=== PATIENT | female | born 1950 | race Caucasian/White ===

== ENCOUNTER 2021-03-13 12:14 | Emergency (ER) | payer MEDICARE, SELFPAY ==
[2021-03-13 12:26] VITALS: BP 137/60; PULSE 75; RESP 18; TEMP 37; O2SAT 98
--- NOTE | 2021-03-13 12:33 | ED.SKABFB ---
HPI - Skin/Abscess/Foreign Bdy General Stated complaint: spot on right leg Time Seen by Provider: 03/13/21 12:33 History of Present Illness HPI narrative: Patient presents with an insect bite to her right lower leg that has had increased redness and warmth and tenderness to her right lower extremity. No drainage no streaking. Patient states she has been applying Neosporin but has noticed increased in redness and not improving. MD complaint: insect bite/sting Tetanus up to date: yes Location: [facility] Related Data Home Medications Medication Instructions Recorded Confirmed atorvastatin 03/13/21 cilostazol mg 03/13/21 clopidogrel 03/13/21 furosemide 03/13/21 gabapentin 03/13/21 losartan 03/13/21 Allergies Allergy/AdvReac Type Severity Reaction Status Date / Time succinylcholine Allergy Unknown Stopped Verified 03/13/21 12:37 Breathing Review of Systems Review of Systems: Narrative: CONSTITUTIONAL: Denies fever, chills, or sweats. EYES: Denies visual changes, redness, or discharge. ENT: Denies rhinorrhea, congestion, sore throat, or otalgia. CARDIOVASCULAR: Denies chest pain, palpitations, or edema. RESPIRATORY: Denies cough or dyspnea. GASTROINTESTINAL: Denies abdominal pain, nausea, vomiting, or diarrhea. GENITOURINARY: Denies dysuria or hematuria. SKIN: Denies rash or itching. MUSCULOSKELETAL: Denies back pain, joint pain, or myalgia. NEUROLOGIC: Denies headache, numbness, or weakness. PSYCHIATRIC: Denies anxiety or depression. PMFSH Comments At time of signature, agree with nursing past medical, surgical, social and family history. There is no relevant family history pertinent to the presenting complaint Exam Narrative: Exam Narrative: GENERAL: Well-appearing, well-nourished, and in no acute distress. HEAD: Normocephalic, atraumatic. EYES: PERRLA and EOMI. ENT: Nares clear, no rhinorrhea or epistaxis. Mucous membranes moist. NECK: Supple. CHEST: Clear to auscultation. No respiratory distress. HEART: Regular rate and rhythm. No murmur heard. Normal peripheral pulses. ABDOMEN: Soft, nontender, nondistended, normal active bowel sounds. EXTREMITIES: Normal range of motion. No edema. Right lower extremity 5 cm x 7 cm area of redness and warmth no streaking no drainage consistent with cellulitis SKIN: Warm, dry, no rash. NEURO: No focal deficits. Alert and oriented x3. [place] Coma Scale Eye Opening: Spontaneous 4 [place] Coma Scale Motor: Obeys Commands 6 [place] Coma Scale Verbal: Oriented 5 [place] Coma Scale Total 15 Course Vital Signs Vital signs: Vital Signs Temperature 37.0 C 03/13/21 12:26 Pulse Rate 75 03/13/21 12:26 Respiratory Rate 18 03/13/21 12:26 Blood Pressure 137/60 03/13/21 12:26 Pulse Oximetry 98 03/13/21 12:26 Temperature 37.0 C 03/13/21 12:26 Pulse Rate 75 03/13/21 12:26 Respiratory Rate 18 03/13/21 12:26 Blood Pressure 137/60 03/13/21 12:26 Pulse Oximetry 98 03/13/21 12:26 Please JAYANT schedule a followup visit with your personal physician for further evaluation and treatment. Including recheck and discussion of your blood pressure. If your symptoms persist, change or worsen significantly before you can contact your personal physician then please, without delay, go to the emergency department for further evaluation MDM - Skin/Abscess/Foreign Bdy Differential Diagnosis Differential diagnosis: Likely abscess of skin or subcutaneous tissue, viral exanthem, dermatophytosis, urticaria, herpes zoster, allergic reaction to drug, cellulitis, eczema, insect bites, impetigo, contact dermatitis and other Critical Care Time Critical Care Time Critical Care Time: No Discharge Plan Discharge Clinical Impression: Cellulitis Patient Disposition: Home, Self-Care Condition: Stable Instructions: Antibiotic Form Additional Instructions: Keep the area clean and dry Antibiotic ointment to the area 3-4 times a day watch for infection--re
== END 2021-03-13 12:50 | disposition home or self-care (01) ==
PROVIDERS: Emergency Provider Nurse Practitioner Family; PCP Family Medicine
DX: L03.115 Cellulitis of right lower limb (principal); E78.00 Pure hypercholesterolemia, unspecified; I10 Essential (primary) hypertension; Z95.820 Peripheral vascular angioplasty status with implants and grafts
CPT/HCPCS: 99213; G0463

== ENCOUNTER 2021-06-19 15:07 | Emergency (ER) | payer MEDICARE, SELFPAY ==
[2021-06-19 15:15] VITALS: BP 154/79; PULSE 74; RESP 20; TEMP 36.6; O2SAT 99
--- NOTE | 2021-06-19 15:25 | ED.URI ---
HPI - URI/Sore Throat General Chief Complaint: Upper Respiratory Infection Stated Complaint: cold Source: patient and RN notes reviewed Mode of arrival: ambulatory Limitations: no limitations History of Present Illness HPI Narrative: Yazmin is a 70-year-old female patient ambulated into the [facility]. Patient states she has a 2-week history of cough, sinus congestion, postnasal drainage, ear pain, and not feeling well. Patient stated multiple family members have been sick throughout the last couple weeks with cold-like symptoms. Patient is frequent with her young grandchild who is 4. Patient states she has a long history of smoking has taken an albuterol inhaler and prednisone years ago. Patient states she has also used an [id number] cold medicine. Patient states her cough is worse at night. Patient has recently lost her . Related Data Home Medications Medication Instructions Recorded Confirmed atorvastatin 40 mg PO DAILY 03/13/21 06/19/21 cilostazol 100 mg PO BID 03/13/21 06/19/21 clopidogrel 75 mg PO DAILY 03/13/21 06/19/21 furosemide 20 mg PO DAILY 03/13/21 06/19/21 gabapentin 300 mg PO TID 03/13/21 06/19/21 losartan 100 mg PO DAILY 03/13/21 06/19/21 aspirin 81 mg PO DAILY 06/19/21 06/19/21 Allergies Allergy/AdvReac Type Severity Reaction Status Date / Time succinylcholine Allergy Unknown Stopped Verified 06/19/21 15:27 Breathing Review of Systems Review of Systems: CONSTITUTIONAL: Denies body aches, fever, chills, or sweats. EYES: Denies visual changes, redness, or discharge. ENT: + rhinorrhea,+ congestion, +sore throat, + otalgia. CARDIOVASCULAR: Denies chest pain, palpitations, or edema. RESPIRATORY: + cough + dyspnea. GASTROINTESTINAL: Denies abdominal pain, nausea, vomiting, or diarrhea. GENITOURINARY: Denies dysuria or hematuria. SKIN: Denies rash, itching, or wounds. MUSCULOSKELETAL: Denies back pain, joint pain, or myalgia. NEUROLOGIC: Denies headache, numbness, tingling, or weakness. PSYCH: Denies depression or anxiety. All systems reviewed & are unremarkable except as noted in HPI and below PMFSH Comments At time of signature, I have reviewed and agree with nursing past medical, surgical, social and family history unless otherwise noted. Please see nursing chart for further information. There is no relevant family history pertinent to the presenting complaint Exam Narrative: GENERAL: Well-appearing, well-nourished, and in no acute distress. HEAD: Normocephalic, atraumatic. EYES: EOMI. No redness or drainage. Conjunctivae normal. ENT: Mucous membranes pink and moist. Nasal passages erythematous with clear drainage, Bilateral TM opaque, moderate fluid noted in left ear. Posterior pharynx erythematous, mild edema, no exudate with moderate amount of post nasal drainage. Uvula midline. NECK: Normal AROM. Supple. Anterior cervical lymphadenopathy. CHEST: No respiratory distress.Inspiratory/Expiratory wheezing in bilateral upper lobes, decreased in bases. MUSCULOSKELETAL: No bony tenderness. EXTREMITIES: Normal range of motion. No edema. SKIN: Warm, dry, no rash. Capillary refill normal. Normal skin turgor. NEURO: No focal deficits. Alert and oriented x3. Gait steady. PSYCH: Normal affect. No signs of depression or anxiety. Course Vital Signs Vital signs: Vital Signs Temperature 36.6 C 06/19/21 15:15 Pulse Rate 74 06/19/21 15:15 Respiratory Rate 20 06/19/21 15:15 Blood Pressure 154/79 H 06/19/21 15:15 Pulse Oximetry 99 06/19/21 15:15 Temperature 36.6 C 06/19/21 15:15 Pulse Rate 74 06/19/21 15:15 Respiratory Rate 20 06/19/21 15:15 Blood Pressure 154/79 H 06/19/21 15:15 Pulse Oximetry 99 06/19/21 15:15 Reviewed. Pt has been instructed to follow up with her PCP regarding her elevated blood pressure today. MDM - URI/Sore Throat MDM Narrative Medical decision making narrative: Patient has been sick for last 2 weeks. Patient has inspi
--- NOTE | 2021-06-19 16:21 | PC.NURSE ---
1550 noted pt previously stated did not want covid testing.
== END 2021-06-19 15:50 | disposition home or self-care (01) ==
PROVIDERS: Emergency Provider Nurse Practitioner Family; PCP Family Medicine
DX: J40 Bronchitis, not specified as acute or chronic (principal); E78.00 Pure hypercholesterolemia, unspecified; I10 Essential (primary) hypertension
CPT/HCPCS: 99213; G0463

== ENCOUNTER 2022-01-13 09:10 | Emergency (ER) | payer MEDICARE, SELFPAY ==
[2022-01-13 09:15] VITALS: BP 164/71; PULSE 69; RESP 16; TEMP 36.8; O2SAT 97
--- NOTE | 2022-01-13 09:28 | ED.WOUNDLAC ---
HPI - Wound/Laceration General Chief Complaint: Wound/Laceration Stated Complaint: left leg injury Time Seen by Provider: 01/13/22 09:28 Source: patient, RN notes reviewed and old records reviewed Mode of arrival: ambulatory Limitations: no limitations History of Present Illness HPI narrative: 71-year-old female presents to [facility] with complaints of hitting her left lower leg on a metal pipe yesterday causing a small avulsion of the skin to her anterior left lower leg. No acute bleeding or any drainage noted.Patient reports that she did cleanse wound at home and also wound care given in clinic with Primaderm and saline solution.Patient reports that she will need update on her Tetanus. Onset (ago): day(s) (1) Patient tetanus UTD: No Related Data Home Medications Medication Instructions Recorded Confirmed atorvastatin 40 mg tablet 40 mg PO DAILY 03/13/21 06/19/21 cilostazol 100 mg tablet 100 mg PO BID 03/13/21 06/19/21 clopidogrel 75 mg tablet 75 mg PO DAILY 03/13/21 06/19/21 furosemide 20 mg tablet 20 mg PO DAILY 03/13/21 06/19/21 gabapentin 300 mg capsule 300 mg PO TID 03/13/21 06/19/21 losartan 100 mg tablet 100 mg PO DAILY 03/13/21 06/19/21 aspirin 81 mg capsule 81 mg PO DAILY 06/19/21 06/19/21 Allergies Allergy/AdvReac Type Severity Reaction Status Date / Time succinylcholine Allergy Unknown Stopped Verified 06/19/21 15:27 Breathing Review of Systems Review of Systems: CONSTITUTIONAL: Denies fever, chills, or sweats. EYES: Denies visual changes, redness, or discharge. ENT: Denies rhinorrhea, congestion, sore throat, or otalgia. CARDIOVASCULAR: Denies chest pain, palpitations, or edema. RESPIRATORY: Denies cough or dyspnea. GASTROINTESTINAL: Denies abdominal pain, nausea, vomiting, or diarrhea. GENITOURINARY: Denies dysuria or hematuria. SKIN: Denies rash or itching.0.5cm avulsion of skin to left anterior lower leg minimally subcutaneous MUSCULOSKELETAL: Denies back pain, joint pain, or myalgia. NEUROLOGIC: Denies headache, numbness, or weakness. PSYCHIATRIC: Denies anxiety or depression. [facility] Comments At time of signature, agree with nursing past medical, surgical, social and family history. There is no relevant family history pertinent to the presenting complaint Exam Narrative: GENERAL: Well-appearing, well-nourished, and in no acute distress. HEAD: Normocephalic, atraumatic. EYES: PERRLA and EOMI. ENT: Nares clear, no rhinorrhea or epistaxis. Mucous membranes moist.TM's normal with good light reflex, throat pink with no lesion or exudates or tonsil swelling NECK: Supple.no lymphadenopathy CHEST: Clear to auscultation. No respiratory distress.SAO2 97% on room air HEART: Regular rate and rhythm. No murmur heard. Normal peripheral pulses. ABDOMEN: Soft, nontender, nondistended, normal active bowel sounds. EXTREMITIES: Normal range of motion. trace pedal edema. SKIN: Warm, dry, no rash.0.5 cm avulsion type of laceration of skin to anterior left lower leg no debris noted, no acute drainage NEURO: No focal deficits. Alert and oriented x3. Course Course Level of Care: Express Care Visit Vital Signs Vital signs: Vital Signs Temperature 36.8 C 01/13/22 09:15 Pulse Rate 69 01/13/22 09:15 Respiratory Rate 16 01/13/22 09:15 Blood Pressure 164/71 H 01/13/22 09:15 Pulse Oximetry 97 01/13/22 09:15 Oxygen Delivery Room Air 01/13/22 09:15 Temperature 36.8 C 01/13/22 09:15 Pulse Rate 69 01/13/22 09:15 Respiratory Rate 16 01/13/22 09:15 Blood Pressure 164/71 H 01/13/22 09:15 Pulse Oximetry 97 01/13/22 09:15 Oxygen Delivery Room Air 01/13/22 09:15 MDM - Wound/Laceration MDM Narrative Medical decision making narrative: Patient received Tetanus update while in clinic Differential Diagnosis Differential diagnosis: Likely laceration, avulsion of skin and other (wound assessment, update of tetanus) Critical Care Time Critical Care Time Critical Care Time: No Dis
[2022-01-13] MEDS: TETANUS,DIPHTHERIA,AC PERTUSSIS ADULT (0.5 ML) BOOSTRIX IM (10:00)
== END 2022-01-13 10:24 | disposition home or self-care (01) ==
PROVIDERS: Emergency Provider Registered Nurse; PCP Family Medicine
DX: S81.802A Unspecified open wound, left lower leg, initial encounter (principal); W22.8XXA Striking against or struck by other objects, initial encounter; Z23 Encounter for immunization; E78.00 Pure hypercholesterolemia, unspecified; I10 Essential (primary) hypertension; Z95.820 Peripheral vascular angioplasty status with implants and grafts
CPT/HCPCS: 90471; 90715; 99213; G0463

== ENCOUNTER 2024-09-25 08:27 | Emergency (ER) | payer MEDICARE, SELFPAY ==
--- NOTE | ~2024-09-25 | XR_ITS ---
EXAMINATION: XR chest 2V DATE: 09/25/2024 09:19 INDICATION: Cough and fever. TECHNIQUE: Frontal and lateral views of the chest were obtained. COMPARISON: None. FINDINGS: Calcified pulmonary nodules and calcified hilar and mediastinal lymph nodes are consistent with old granulomatous disease. There is mild atelectasis at the lung bases. No pleural effusion or p neumothorax. The heart size is normal. IMPRESSION: 1. Mild atelectasis at the lung bases. Reviewed, dictated and finalized at location [facility]
--- OUTSIDE RECORDS SUMMARY | 2024-09-25 08:29 | XMS_ITS | Clinical Summary ---
Author Organization [email or web address] Address [address] [place] [address] Care Team Providers Care Yellow Pages Space Salesperson Name Role Phone Alvaro Santos MD Primary Care Provider [phone] Source Comments [email or web address],non-owned Affiliates and Associated Physician Practices is amultiple site organization consisting of ambulatory clinics and hospital sitesin [place], [place], [place] and [place]. This disclosure is being madepursuant to the Care Everywhere program and may not contain all information available regarding this patient. Last updated 18.[email or web address] Allergies Active Allergy Reactions Criticality Noted Date Comments Succinylcholine Anaphylaxis High Medications * Be aware that medications may not be up to date on this document. Alwaysverify current medications with the patient. Medication Sig Dispensed Refills Start Date End Date Status atorvastatin (LIPITOR) 40 MG tablet Take 40 mg by mouth Active clopidogrel (PLAVIX) 75 MG tablet Take 75 mg by mouth 03/17/2017 Active furosemide (LASIX) 20 MG tablet 05/21/2018 Active losartan (COZAAR) 100 MG tablet 05/08/2018 Active Multiple Vitamins-Minerals (ICAPS AREDS 2 PO) Active naproxen (NAPROSYN) 500 MG tablet 04/09/2018 Active Family History Medical History Relation Name Comments Hypertension Father Renal Disease Father Hypertension Mother Relation Name Status Comments Father Mother Social History Tobacco Use Types Packs/Day Years Used Date Smoking Tobacco: Former Cigarettes Smokeless Tobacco: Never Tobacco Cessation:Counseling Given: No Comments:qiut 3 years ago in Sep Alcohol Use Standard Drinks/Week Comments No 0 (1 standard drink = 0.6 oz pur e alcohol) Sex and Gender Information Value Date Recorded Sex Assigned at Not on file Gender Identity Not on file Sexual Orientation Not on file Last Filed Vital Signs Vital Sign Reading Time Taken Comments Blood Pressure 132/77 07/18/2018 1:16 PM [employer]ER DIAMETER GRINDER Pulse 88 07/18/2018 1:16 PM [employer]ER DIAMETER GRINDER Temperature 36.8 C (98.3 F) 07/18/2018 1:16 PM OUTER DIAMETER GRINDER Respiratory Rate - - Oxygen Saturation - - Inhaled Oxygen Concentration - - Weight 84.8 kg (187 lb) 07/18/2018 1:16 PM OUTER DIAMETER GRINDER Height 161.3 cm (5' 3.5 ) 07/18/2018 1:16 PM OUTER DIAMETER GRINDER Body Mass Index 32.61 07/18/2018 1:16 PM OUTER DIAMETER GRINDER Plan of Treatment Health Maintenance Due Date Last Done Comments BONE DENSITY TESTING 1950 COLOGUARD (AGES 45-75) - COL ON CA SCREENING 1949 COLON MONITORING 1949 COLONOSCOPY - COLON CA SCREENING 1949 CT COLONOGRAPHY - COLON CA SCREENING 1950 Colorectal Cancer Screening 1950 FIT - COLON CA SCREENING 1949 FLEX SIG - COLON CA SCREENING 1950 MAMMOGRAM 1950 MEDICARE AWV 12 MONTHS 1949 HEPATITIS C SCREENING 12/05/1967 DTAP/TDAP/TD VACCINES (1 - Tdap) 1968 PNEUMOCOCCAL VACCINE 50+ (1 of 1 - PCV) 12/10/1999 ZOSTER VACCINE (1 of 2) 12/10/1999 SCREENING FOR DIABETES 07/18/2018 COVID-19 VACCINE (1 - 2023-2 5 season) 2024 INFLUENZA VACCINE (#1) 2024 DEPRESSION SCREENING 08/20/2024 Respiratory Syncytial Virus (RSV) Vaccine Pt: or over 60 yrs (1 - 1-dose 75+ series) 2024 HEPATITIS B VACCINE Aged Out No longe r eligible based on patient's age to complete this topic HIB VACCINE Aged Out No longer eligi ble based on patient's age to complete this topic HPV VACCINE Aged Out No longer eligi ble based on patient's age to complete this topic MENINGOCOCCAL (Group B) VACCINE Aged Out No longer eligible based on patient's age to complete this topic MENINGOCOCCAL VACCINE Aged Out No lana deshaun eligible based on patient's age to complete this topic Care Teams Yellow Pages Space Salesperson Relationship Specialty Start Date End Date Alvaro Santos MD [address] [place] [id number] PCP - General 06/06/18
--- OUTSIDE RECORDS SUMMARY | 2024-09-25 08:29 | XMS_ITS | Referral Summary ---
Author Organization [facility] Address [address] [place] [address] Care Team Providers Care Lumber Tailer Name Role Phone Alvaro Santos MD Primary Care Provider [phone] Source Comments [facility] [employer],non-owned Affiliates and Associated Physician Practices is amultiple site organization consisting of ambulatory clinics and hospital sitesin [place], [place], [place] and [place]. This disclosure is being madepursuant to the Care Everywhere program and may not contain all information available regarding this patient. Last updated 18.[facility] Allergies Active Allergy Reactions Criticality Noted Date [...] naproxen (NAPROSYN) 500 MG tablet 04/09/2018 Active Social History Tobacco Use Types Packs/Day Years [...] Comments Blood Pressure 132/77 07/18/2018 1:16 PM [employer] Pulse 88 07/18/2018 1:16 PM [employer] Temperature 36.8 C (98.3 F) 07/18/2018 1:16 PM [employer] Respiratory Rate - - Oxygen Saturation - - Inhaled Oxygen Concentration - - Weight 84.8 kg (187 lb) 07/18/2018 1:16 PM [employer] Height 161.3 cm (5' 3.5 ) 07/18/2018 1:16 PM [employer] Body Mass Index 32.61 07/18/2018 1:16 PM [employer] Plan of Treatment Not on file Care Teams Lumber Tailer Relationship Specialty Start Date End Date [place] [place] [place] [id number] PCP - General 06/06/18
--- OUTSIDE RECORDS SUMMARY | 2024-09-25 08:29 | XMS_ITS | Clinical Summary ---
Author Organization [facility] Address [address] [place] [address] Phone Care Team Providers Care Dean Of Students Name Role Phone Alvaro Santos MD Primary Care Provider [phone] Jeny Barnes APRN, EXAMINING CHAIR ASSEMBLER Unavailable Allergies Active Allergy Reactions Criticality Noted Date Comments Succinylcholine Chloride Anaphylaxis High 02/12/2017 WAS ON A RESPIRATOR AFTER GIVEN ANECTINE Medications Multiple Vitamins-Minerals (PRESERVISION AREDS 2 PO) Take 1 Tab by mouth daily. Active clopidogrel (PLAVIX) 75 MG Tablet Take 75 mg by mouth daily. 3 7 Active gabapentin (NEURONTIN) 300 MG Capsule Take 300 mg by mouth 3 times daily. Active furosemide (LASIX) 20 MG Tablet Take 20 mg by mouth daily. Active losartan (COZAAR) 100 MG Tablet Take 100 mg by mouth daily. Active aspirin 81 MG Chewable Tablet Take 81 mg by mouth daily. Active atorvastatin (LIPITOR) 40 MG Tablet Take 40 mg by mouth every evening. Active OXYGEN TANK LARGE 3 L by Nasal route continuous. Active OXYGEN CONCENTRATOR 2 L by Nasal route continuous. Active cilostazol (PLETAL) 50 MG Tablet Take 50 mg by mouth 2 times daily. Active Ferrous Sulfate (Iron) 325 (65 Fe) MG Tablet Take by mouth. A ctive albuterol 108 (90 Base) MCG/ACT Aerosol SolutionIndicatio ns:Centrilobular emphysema (HCC) take 2 Puffs by inhalation every 4 hours as needed for Wheezing. 18 g 5 4 Active budesonide-formot alexandra fumarate (Symbicort) 160-4.5 MCG/ACT AerosolIndication s:Centrilobular emphysema (HCC) take 2 Puffs by inhalation 2 times daily. 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 Personal history of tobacco use 08/11/2021 CHAVIRA (dyspnea on exertion) 08/11/2021 Anxiety 07/18/2021 Neuropathy 07/18/2021 Elevated d-dimer 07/18/2021 Peripheral vascular disease 08/28/2014 Overview (07/18/2021): Overview: Peripheral vascular disease Benign hypertension 01/03/2014 Overview (07/18/2021): Overview: BENIGN HYPERTENSION Dyslipidemia 01/03/2014 Overview (07/18/2021): Overview: Dyslipidemia Hypertension High cholesterol Resolved Problems Problem Noted Date Diagnosed Date Resolved Date Acute diastolic (congestive) heart failure 07/18/2021 07/25/2021 Acute metabolic encephalopathy 07/18/2021 07/25/2021 Acute respiratory failure with hypoxia 07/18/2021 07/25/2021 Pneumonia due to COVID-19 virus 07/18/2021 12/07/2022 Severe sepsis with acute organ dysfunction 07/18/2021 07/25/2021 Encounters Date Type Department Care Team Description 08/22/2024 Results Follow-Up [facility] - Pulmonology & Sleep Medicine [facility] [address] [place] [address] Jeny Barnes, DATA CENTER SOLUTIONS ARCHITECT, EXAMINING CHAIR ASSEMBLER 08/07/2024 10:44 AM WELL BLOWER - 08/07/2024 11:59 PM WELL BLOWER [facility] [address] [place] [address] Jeny Barnes APRN, CNP Discharge Disposition: Discharged to home or Selfcare 08/07/2024 Travel 08/05/2024 Travel 07/16/2024 Telephone [facility] Pul[facility]ology & [facility] Medicine [facility] [address] [place] [address] Jeny Barnes APRN, CNP Results from Last 3 Months Immunizations Immunization Administration Dates Next Due TDAP Vaccine 03/16/2020 Family History Medical History Relation Name Comments Hypertension Father Kidney Disease Father Hypertension Mother Relation Name Status Comments Father Mother Social History Tobacco Use Types Packs/Day Years Used Date Smoking Tobacco: Former Cigarettes 1 45 0 10/15/1971 - 10/15/2016 Smokeless Tobacco: Never Tobacco Cessation:Counseling Given: Not Answered Alcohol Use Standard Drinks/Week Comments No 0 (1 standard drink = 0.6 oz pur e alcohol) social Sexually Active Control Partners Comments Not Currently Comments No Sex and Gender Information Value Date Recorded Sex Assigned at Not on file Legal Sex Female 8:37 PM CDT Gender Identity Not on file Sexual Orientation Not on file Last Filed Vital Signs Vital Sign Reading Time Taken Comments Blood Pressure 132/64 06/10/2024 11:08 AM CDT Pulse 55 06/10/2024 11:08 AM CDT Temperature 36.1 C (96.9 F) 06/10/2024 11:08 AM CDT Respiratory Rate 14 06/10/2024 11:08 AM CDT Oxygen Saturation 99% 06/10/2024 11:08 AM CDT Inhaled Oxygen Concentration - - Weight 88 kg (194 lb 1.6 oz) 06/10/2024 11:08 AM CDT Height 161.3 cm (5' 3.5 ) 06/10/2024 11:08 AM CD T Body Mass Index 33.84 06/10/2024 11:08 AM CDT Plan of Treatment Upcoming Encounters Date Type Department Care Team (Late st Contact Info) Description 12/01/2024 10:00 AM CDT Office Visit [facility] Pulmonology & Sleep Medicine [facility] [address] [place] [address] Jeny Barnes, DATA CENTER SOLUTIONS ARCHITECT, EXAMINING CHAIR ASSEMBLER [address] [facility] [address] [place] [address] Health Maintenance Due Date Last Done Comments Hepatitis C Virus (HCV) Screening 1950 Pneumococcal Immunization (50+ years) (1 of 2 - PCV) 1968 2014 Cologuard 12/10/1999 Immunochemical Fecal Occult Blood 12/10/1999 Zoster Immunization (1 of 2) 12/10/1999 Respiratory Syncytial Virus (RSV) Immunization (Adult) (1 - Risk 60-74 years 1-dose series) 2009 Influenza Immunization (#1) 2024 SARS-COV-2 Immunization ( - season) 2024 Discussion re Stopping Mammograms 2024 DEXA Bone Density 03/02/2025 03/02/2023, , 03/02/2020, Additional history exists Lung Cancer Screening 08/07/2025 08/07/2024 , 04/23/2024, 04/16/2023, Additional history exists Mammogram 12/27/2025 12/28/2023, 11/18, 12/12/2021 Colonoscopy 02/11/2029 02/11/2019 Colorectal Cancer Screening 02/11/2029 Td Immunization Every 10 Years (Adults With 1 Tdap) 01/14/2032 01/13/2022, 03/16/2020 02/11/2019 Pneumococcal Immunization Combined Discontinued 2014 DTaP/Tdap/Td Immunization Discontinued 01/13/2022, Hepatitis B Immunization Aged Out No longer eligible based on patient's age to complete this topic Meningococcal Immunization (ACWY) Aged Out No longer eligible based on patient's age to complete this topic Rotavirus Immunization Aged Out No lo nger eligible based on patient's age to complete this topic Medical Devices Implanted Type Area Lead Infrastructure Architect Device Identifier Shelf Expiration Date Model / Serial / Lot Angioseal Vip 6fr - [id number] Implanted:Qty : 1 on 02/16/2017 by Charlie Duron MD at [facility] IMPLANT Right: Groin ST HAM / ATRIAL FIB 10/17/2017 [id number] / / [id number] Angioseal Vip 6fr - [id number] Implanted:Qty : 1 on 02/16/2017 by Charlie Duron MD at [facility] IMPLANT Left: Groin ST HAM / ATRIAL FIB 10/17/2017 [id number] / / [id number] Closure Mynxgrip 5fr [id number] - [id number] Implanted:Qty : 1 on 08/03/2017 by Charlie Duron MD at [facility] IMPLANT Left: Groin [employer] 06/19/2019 [id number] / / [id number] Pulsar-18 Implanted:Qty : 1 on 02/16/2017 by Charlie Duron MD at [facility] Stent Right: Leg [employer] 11/18/2019 [id number] / / [id number] I Cast Implanted:Qty : 1 on 02/16/2017 by Charlie Duron MD at [facility] Stent Left: Leg [employer] 05/11/2019 / [id number] / NA I Cast Implanted:Qty : 1 on 02/16/2017 by Charlie Duron MD at [facility] Right: Leg [employer] 05/11/2019 [id number] / [id number] / NA Procedures Procedure Name Priority Date/Time Associated Diagnosis Comments CT HIGH RESOLUTION CHEST COMPLETE Routine 08/07/2024 11:14 AM WELL BLOWER Abnormal CT of the chest [facility] SCREENING BILATERAL DIGITAL W CAD W RUTHIE Routine 12/28/2023 4:25 PM CDT Visit for screening mammogram [facility] BONE DENSITOMETRY AXIAL SKELETON Routine 03/02/2023 1:45 PM CDT Menopause from Last 3 Months or Most Recently Relevant to Health Maintenance Results * CT HIGH RESOLUTION CHEST COMPLETE (08/07/2024 11:14 AM WELL BLOWER) Anatomical Region Laterality Modality Chest N/A Computed Tomogra phy 08/11/2024 5:08 PM WELL BLOWER Impressions 08/11/2024 5:10 PM WELL BLOWER IMPRESSION: Moderate bilateral upper lobe predominant emphysematous changes. No suspicious pulmonary nodule Narrative 08/11/2024 5:10 PM WELL BLOWER EXAM DESCRIPTION: CT HIGH RESOLUTION CHEST COMPLETE REASON FOR STUDY: F/U CT from 04/23/24 noting concern for chronic nonspecific interstitial changes x 3 months TECHNIQUE: CT scan of the chest performed without intravenous contrast using helical scanning technique. Inspiratory and expiratory images were acquired. Prone inspiratory images were acquired. Reconstructed coronal and sagittal MPR images reviewed. All images stored on PACS. Automated exposure control was used as a dose optimization technique for this examination. COMPARISON: CT chest 04/23/2024 REFERENCE: Per ACR white paper recommendations, unless otherwise specified no follow-up imaging is recommended for incidental renal and adrenal lesions per consensus recommendations based on imaging criteria. Further lab evaluation could be pursued based on clinical findings. FINDINGS: LUNGS: Moderate bilateral upper lobe predominant emphysematous changes. Stable bilateral calcified granulomas. No suspicious nodules or masses. No acute consolidation. No bronchial wall thickening or bronchiectasis. No architectural distortion or honeycombing. No groundglass opacities or reticulation. No air trapping. PLEURA: No effusion. No pneumothorax. MEDIASTINUM/JUANA: No identified masses or abnormal nodes. HEART: No pericardial effusion. CORONARY ARTERY CALCIFICATION: Mild VASCULATURE: No aortic aneurysm. AXILLA: No adenopathy. CHEST WALL: No masses. No subcutaneous air. HARDWARE/LINES/TUBES: None. UPPER ABDOMEN: Moderate hiatal hernia. MUSCULOSKELETAL: No acute findings. No hernias. OTHER: No other significant finding. THIS IS AN ELECTRONICALLY VERIFIED FINAL REPORT 08/11/2024 5:08 PM - Electronically signed by Fernanda Sequeira M.D. FT: FT Report ID: [id number] Reading Location: [id number] Procedure Note Fernanda Brennan MD - 08/11/2024 EXAM DESCRIPTION: CT HIGH RESOLUTION CHEST COMPLETE REASON FOR STUDY: F/U CT from 04/23/24 noting concern for chronic nonspecific interstitial changes x 3 months TECHNIQUE: CT scan of the chest performed without intravenous contrast using helical scanning technique. Inspiratory and expiratory images were acquired. Prone inspiratory images were acquired. Reconstructed coronal and sagittal MPR images reviewed. All images stored on PACS. Automated exposure control was used as a dose optimization technique for this examination. COMPARISON: CT chest 04/23/2024 REFERENCE: Per ACR white paper recommendations, unless otherwise specified no follow-up imaging is recommended for incidental renal and adrenal lesions per consensus recommendations based on imaging criteria. Further lab evaluation could be pursued based on clinical findings. FINDINGS: LUNGS: Moderate bilateral upper lobe predominant emphysematous changes. Stable bilateral calcified granulomas. No suspicious nodules or masses. No acute consolidation. No bronchial wall thickening or bronchiectasis. No architectural distortion or honeycombing. No groundglass opacities or reticulation. No air trapping. PLEURA: No effusion. No pneumothorax. MEDIASTINUM/JUANA: No identified masses or abnormal nodes. HEART: No pericardial effusion. CORONARY ARTERY CALCIFICATION: Mild VASCULATURE: No aortic aneurysm. AXILLA: No adenopathy. CHEST WALL: No masses. No subcutaneous air. HARDWARE/LINES/TUBES: None. UPPER ABDOMEN: Moderate hiatal hernia. MUSCULOSKELETAL: No acute findings. No hernias. OTHER: No other significant finding. THIS IS AN ELECTRONICALLY VERIFIED FINAL REPORT 08/11/2024 5:08 PM - Electronically signed by Fernanda Sequeira M.D. FT: FT Report ID: [id number] Reading Location: [place] [address] IMPRESSION: Moderate bilateral upper lobe predominant emphysematous changes. No suspicious pulmonary nodule Jeny Barnes APRN, EXAMINING CHAIR ASSEMBLER IMG CT ORDERABLES Fin al Result * [facility] SCREENING BILATERAL DIGITAL W CAD W RUTHIE (12/28/2023 4:25 PM CDT) Anatomical Region Laterality Modality breast Bilateral Mammography 12/28/2023 4:28 PM CDT Narrative 12/31/2023 10:54 AM CDT - [facility] SCREENING BILATERAL DIGITAL W CAD W RUTHIE BILATERAL DIGITAL SCREENING MAMMOGRAM 3D/2D WITH CAD WITH MEDIOLATERAL MEDIOLATERAL OBLIQUE CRANIOCAUDAL: 12/28/2023 The study was acquired using digital technology and interpreted from soft copy. Current study was also evaluated with ICAD version 7.2. 2D digital mammographic views, as well as 3D digital tomosynthesis were performed in the CC and MLO projections. CLINICAL: Routine screening. Patient has no complaints. No personal history of cancer. Patient has a right rotator cuff tear which limits her range of motion. Maternal and paternal grandmothers had breast cancer. COMPARISONS: Comparison is made to exams dated: 11/29/2022, 12/12/2021 [facility], and 08/17/2020 [facility]. BREAST TISSUE:There are scattered fibroglandular densities in both breasts. FINDINGS: There are benign calcifications in both breasts. No significant masses, calcifications, or other findings are seen in either breast. There has been no significant interval change. IMPRESSION: BI-RAD 2 BENIGN There is no mammographic evidence of malignancy. A 1 year screening mammogram is recommended. A letter will be sent to the patient with these results. The patient will be entered into a reminder system with a target due date of 1 year for her next screening exam. Electronically signed by: Mani cespedes/sangeetha:12/31/2023 09:46:17 Melter Loader(s): RT Marlon(Buddy)(M), [facility] letter sent: Normal Exam Reading location: [facility] BI-RADS: 2 Benign Procedure Note Mani Gil MD - 12/31/2023 - [facility] SCREENING BILATERAL DIGITAL W CAD W RUTHIE BILATERAL DIGITAL SCREENING MAMMOGRAM 3D/2D WITH CAD WITH MEDIOLATERAL MEDIOLATERAL OBLIQUE CRANIOCAUDAL: 12/28/2023 The study was acquired using digital technology and interpreted from soft copy. Current study was also evaluated with ICAD version 7.2. 2D digital mammographic views, as well as 3D digital tomosynthesis were performed in the CC and MLO projections. CLINICAL: Routine screening. Patient has no complaints. No personal history of cancer. Patient has a right rotator cuff tear which limits her range of motion. Maternal and paternal grandmothers had breast cancer. COMPARISONS: Comparison is made to exams dated: 11/29/2022, 12/12/2021 [facility], and 08/17/2020 [facility]. BREAST TISSUE:There are scattered fibroglandular densities in both breasts. FINDINGS: There are benign calcifications in both breasts. No significant masses, calcifications, or other findings are seen in either breast. There has been no significant interval change. IMPRESSION: BI-RAD 2 BENIGN There is no mammographic evidence of malignancy. A 1 year screening mammogram is recommended. A letter will be sent to the patient with these results. The patient will be entered into a reminder system with a target due date of 1 year for her next screening exam. Electronically signed by: Mani cespedes/sangeetha:12/31/2023 09:46:17 Melter Loader(s): RT Marlon(R)(M), [facility] letter sent: Normal Exam Reading location: [facility] BI-RADS: 2 Benign us Lev Sullivan MD IMG MAMMO ORDERABLES F inal Result * [facility] BONE DENSITOMETRY AXIAL SKELETON (03/02/2023 1:45 PM CDT) Anatomical Region Laterality Modality BODY N/A Computed Radiogr aphy 03/02/2023 2:40 PM CDT Impressions 03/02/2023 2:43 PM CDT IMPRESSION: Low Bone Mass. REFERENCE: Bone mineral density: Normal (T-score above or = -1.0) Low bone mass (T-score between -1.0 and -2.5) replaces the previously used term osteopenia Osteoporosis (T-score = or below -2.5) Medical evaluation for secondary causes of low bone mineral density may be appropriate. FRAX is a World Health Organization validated fracture risk assessment tool that calculates a person's 10 year probability of a major osteoporosis related fracture and hip fracture. According to the National Osteoporosis Foundation guidelines, postmenopausal women and men age 50 or older with low bone mass and a 10 year probability of a major osteoporosis related fracture = or greater than 20% or a 10 year probability of a hip fracture = or greater than 3% should be considered for treatment. For further information, including treatment recommendations, please refer to the 2019 ISCD Official Positions (http://www.iscd.org) and the NOF's Clinician's Guide to Prevention and Treatment of Osteoporosis (http://www.nof.org/professionals/clinical-guidelines) Narrative 03/02/2023 2:43 PM CDT EXAM DESCRIPTION: [facility] BONE DENSITOMETRY AXIAL SKELETON REASON FOR STUDY: 72 y/o year old F with given history of: menopause Lead Infrastructure Architect/Model: [employer] (S/N [id number]) CLINICAL INFORMATION: Current height: 62 inches Maximum height: 63 inches Weight: 180 pounds Risk factors: Prior history of fracture. COMPARISON: 03/02/2020 FINDINGS: AP LUMBAR SPINE L1-L4: Total BMD is 1.382 g/cm2 T-score is 1.5 This is increased by 5.5% in comparison to prior exam which is statistically significant. LEFT HIP: Total BMD is 0.874 g/cm2 T-score is -1.1 This is decreased by 0.8% in comparison to prior exam which not statistically significant. Femoral neck BMD is 0.797 g/cm2 T-score is -1.7 FRAX: 10 year risk for a major osteoporotic fracture is 16.9 %, 10 year risk for a hip fracture is 3.1 % THIS IS AN ELECTRONICALLY VERIFIED FINAL REPORT 03/02/2023 2:40 PM - Electronically signed by Brendan Fenton M.D. KR: KR Report ID: [id number] Reading Location: [place] [address] Procedure Note Brendan Fenton MD - 03/02/2023 EXAM DESCRIPTION: [facility] BONE DENSITOMETRY AXIAL SKELETON REASON FOR STUDY: 72 y/o year old F with given history of: menopause Lead Infrastructure Architect/Model: [employer] (S/N [id number]) CLINICAL INFORMATION: Current height: 62 inches Maximum height: 63 inches Weight: 180 pounds Risk factors: Prior history of fracture. COMPARISON: 03/02/2020 FINDINGS: AP LUMBAR SPINE L1-L4: Total BMD is 1.382 g/cm2 T-score is 1.5 This is increased by 5.5% in comparison to prior exam which is statistically significant. LEFT HIP: Total BMD is 0.874 g/cm2 T-score is -1.1 This is decreased by 0.8% in comparison to prior exam which not statistically significant. Femoral neck BMD is 0.797 g/cm2 T-score is -1.7 FRAX: 10 year risk for a major osteoporotic fracture is 16.9 %, 10 year risk for a hip fracture is 3.1 % THIS IS AN ELECTRONICALLY VERIFIED FINAL REPORT 03/02/2023 2:40 PM - Electronically signed by Brendan Fenton M.D. KR: KR Report ID: [id number] Reading Location: [place] [address] IMPRESSION: Low Bone Mass. REFERENCE: Bone mineral density: Normal (T-score above or = -1.0) Low bone mass (T-score between -1.0 and -2.5) replaces the previously used term osteopenia Osteoporosis (T-score = or below -2.5) Medical evaluation for secondary causes of low bone mineral density may be appropriate. FRAX is a World Health Organization validated fracture risk assessment tool that calculates a person's 10 year probability of a major osteoporosis related fracture and hip fracture. According to the National Osteoporosis Foundation guidelines, postmenopausal women and men age 50 or older with low bone mass and a 10 year probability of a major osteoporosis related fracture = or greater than 20% or a 10 year probability of a hip fracture = or greater than 3% should be considered for treatment. For further information, including treatment recommendations, please refer to the 2019 ISCD Official Positions (http://www.iscd.org) and the NOF's Clinician's Guide to Prevention and Treatment of Osteoporosis (http://www.nof.org/professionals/clinical-guidelines) Alvaro Santos MD IMG DEXA ORDERABLES Final Result from Last 3 Months or Most Recently Relevant to Health Maintenance Insurance MEDICARE [facility] Advance Directives * Full Code (Latest Code Status on File) Date Activated Date Inactivated Comments 08/01/2021 7:58 AM 12/19/2022 1:24 PM * Full Code Date Activated Date Inactivated Comments 07/18/2021 8:25 PM 07/25/2021 4:09 PM CPR-Full Tr eatment: FULL ARREST: Attempt Resuscitation/CPR wit intubation and mechanical ventilation. PRE-ARREST: Use entire range of life support measures to stabilize the patient. Care Teams Dean Of Students Relationship Specialty Start Date End Date Alvaro Santos MD [address] [place] [address] PCP - General Internal Medicine 09/05/16 Jeny Barnes, DATA CENTER SOLUTIONS ARCHITECT, EXAMINING CHAIR ASSEMBLER #[address] [facility] [address] [address] Nurse Practitioner Advanced Practice Nurse 11/08/21
--- OUTSIDE RECORDS SUMMARY | 2024-09-25 08:29 | XMS_ITS | Patient Health Summary ---
Author Organization [facility] Address [address] [place] [address] Care Team Providers Care Paste Mixer Name Role Phone Alvaro Santos MD Primary Care Provider [phone] Note from [facility],non-owned Affiliates and Associated Physician Practices is amultiple site organization consisting of ambulatory clinics and hospital sitesin [place], [place], [place] and [place]. This disclosure is being madepursuant to the Care Everywhere program and may not contain all information available regarding this patient. Last updated 18.[facility] Allergies * Succinylcholine(Anaphylaxis) -High Criticality Medications * Be aware that medications may not be up to date on this document. Alwaysverify current medications with the patient. * atorvastatin (LIPITOR) 40 MG tablet Take 40 mg by mouth * clopidogrel (PLAVIX) 75 MG tablet(Started 03/17/2017) Take 75 mg by mouth * furosemide (LASIX) 20 MG tablet(Started 05/21/2018) * losartan (COZAAR) 100 MG tablet(Started 05/08/2018) * Multiple Vitamins-Minerals (ICAPS AREDS 2 PO) * naproxen (NAPROSYN) 500 MG tablet(Started 04/09/2018) Social History Tobacco Use Types Packs/Day Years [...] Comments Blood Pressure 132/77 07/18/2018 1:16 PM HARNESS PREPARER Pulse 88 07/18/2018 1:16 PM HARNESS PREPARER Temperature 36.8 C (98.3 F) 07/18/2018 1:16 PM HARNESS PREPARER Respiratory Rate - - Oxygen Saturation - - Inhaled Oxygen Concentration - - Weight 84.8 kg (187 lb) 07/18/2018 1:16 PM HARNESS PREPARER Height 161.3 cm (5' 3.5 ) 07/18/2018 1:16 PM HARNESS PREPARER Body Mass Index 32.61 07/18/2018 1:16 PM HARNESS PREPARER Care Teams Paste Mixer Relationship Specialty Start Date End Date Alvaro Santos MD [address] [place] [id number] PCP - General 06/06/18
[2024-09-25 08:39] VITALS: BP 121/66; PULSE 69; RESP 18; TEMP 36.9; O2SAT 97
--- NOTE | 2024-09-25 08:41 | ED.URI ---
HPI - URI/Sore Throat General Chief Complaint: Upper Respiratory Infection Stated Complaint: Cough/Fever Time Seen by Provider: 09/25/24 08:43 Source: patient Mode of arrival: ambulatory Limitations: no limitations History of Present Illness HPI Narrative: 73 y/o female with hx DVT presented for c/o harsh cough and fever over the past few days. Endorses temp up to 102.8 yesterday and today. She has been taking Tylenol and Mucinex. Denies increased shortness of breath, wheezing, nausea, vomiting, diarrhea or lethargy. Tested negative for COVID yesterday. Pt has albuterol and nebulizer, but has not been using it. Follows with government services professional. Related Data Home Medications ?Medication ?Instructions ?Recorded ?Confirmed ?Last Taken ?Type atorvastatin 40 mg tablet 40 mg PO DAILY 03/13/21 09/25/24 Unknown History cilostazol 100 mg tablet 100 mg PO BID 03/13/21 03/06/23 Unknown History clopidogrel 75 mg tablet 75 mg PO DAILY 03/13/21 09/25/24 Unknown History furosemide 20 mg tablet 20 mg PO DAILY 03/13/21 03/06/23 Unknown History gabapentin 300 mg capsule 300 mg PO TID 03/13/21 03/06/23 Unknown History losartan 100 mg tablet 100 mg PO DAILY 03/13/21 09/25/24 Unknown History aspirin 81 mg capsule 81 mg PO DAILY 06/19/21 03/06/23 Unknown History cilostazol 50 mg tablet mg 09/25/24 Unknown History Allergies Allergy/AdvReac Type Severity Reaction Status Date / Time succinylcholine Allergy Unknown Stopped Verified 09/25/24 08:51 Breathing Review of Systems Review of Systems: CONSTITUTIONAL: Denies body aches, fever, chills, or sweats. EYES: Denies visual changes, redness, or discharge. ENT: Denies rhinorrhea, congestion, sore throat, or otalgia. CARDIOVASCULAR: Denies chest pain, palpitations, or edema. RESPIRATORY: Reports cough, Denies sob, wheezing. GASTROINTESTINAL: Denies abdominal pain, nausea, vomiting, or diarrhea. MUSCULOSKELETAL: Denies back pain, joint pain, or myalgia. NEUROLOGIC: Denies headache, numbness, tingling, or weakness. PSYCH: Denies depression or anxiety. All systems reviewed & are unremarkable except as noted in HPI and below PMFSH Past Medical History Medical History Rotator cuff arthropathy of right shoulder History of anesthesia problem H/O deep venous thrombosis Left knee DJD Surgical History Surgical History Hx of arthroscopy of left knee 2015 Family History Family History Other Arthritis High cholesterol Hypertension Social History Social History Smoking status: Former smoker Tobacco type: cigarettes Substance use type: does not use Living arrangements: with family Occupation/Education: retired Gender identity (if verbalized by the patient): Female Comments At time of signature, I have reviewed and agree with nursing past medical, surgical, social and family history unless otherwise noted. Please see nursing chart for further information. There is no relevant family history pertinent to the presenting complaint Exam Narrative: GENERAL: mildly ill-appearing, in no acute distress. EYES: EOMI. No redness or drainage. Conjunctivae normal. ENT: Mucous membranes pink and moist. No rhinorrhea. TMs normal bilaterally. Throat normal. Uvula midline. NECK: Normal AROM. Supple. CHEST: No respiratory distress. Coarse and Wheezing to all rangel. HEART: Regular rate and rhythm. No murmur appreciated. ABDOMEN: Soft, nontender, nondistended, normal active bowel sounds. EXTREMITIES: Normal range of motion. No edema. SKIN: Warm, dry, no rash. Capillary refill normal. Normal skin turgor. NEURO: Alert and oriented x3. Gait steady. PSYCH: Normal affect. Course Course Emergency Course: Patient is aware of diagnosis, understands and agrees to treatment plan. Anticipatory guidance given. Patient agrees to follow-up as directed and is aware of reasons to seek care at the emergency department. Portions of this record may have been created with voice recognition software Level of Care: Express Care Visit Vital Signs Vital signs: Vital Signs Temperature 98.5 F 09/25/24 08:39 Pulse Rate 69 09/25/24 08:39 Respiratory Rate 18 09/25/24 08:39 Blood Pressure 121/66 09/25/24 08:39 Pulse Oximetry 97 09/25/24 08:39 Oxygen Delivery Room Air 02/06/25 08:39 Temperature 98.5 F 09/25/24 08:39 Pulse Rate 69 09/25/24 08:39 Respiratory Rate 18 09/25/24 08:39 Blood Pressure 121/66 09/25/24 08:39 Pulse Oximetry 97 09/25/24 08:39 Oxygen Delivery Room Air 09/25/24 08:39 MDM - URI/Sore Throat MDM Narrative Medical decision making narrative: Negative flu and COVID. CXR reviewed with patient. Reviewed RX's. Discussed physical exam findings. Advised supportive measures and signs/symptoms to go to the ER. Pt is appropriate for outpt treatment and f/u with government services professional. Differential Diagnosis Differential diagnosis: Likely upper respiratory infection, sinusitis, viral infection, bronchitis and other (pneumonia) Lab Data Labs: Lab Results 09/25/24 Range/Units 09:06 POC Influenza A Ag Negative (Negative) POC Influenza B Ag Negative (Negative) POC SARS CoV-2 Ag Negative (Negative) Imaging Data Radiologist's impression: Patient: Yazmin Albert : 1950 MR#: [id number] Age: 73 Acct:[id number] Loc: [facility] ADM Date: 09/25/24Attending Dr: Ordering Physician: Livier Ty APRN Date of Service: 09/25/24 Procedure(s): XR chest 2V Accession Number(s): [id number] cc: Tom, Alvaro Hi MD; Livier Ty APRN~ EXAMINATION: XR chest 2V DATE: 09/25/2024 09:19 INDICATION: Cough and fever. TECHNIQUE: Frontal and lateral views of the chest were obtained. COMPARISON: None. FINDINGS: Calcified pulmonary nodules and calcified hilar and mediastinal lymph nodes are consistent with old granulomatous disease. There is mild atelectasis at the lung bases. No pleural effusion or pneumothorax. The heart size is normal. IMPRESSION: 1. Mild atelectasis at the lung bases. Discharge Plan Discharge Clinical Impression: Bronchitis Patient Disposition: Home, Self-Care Condition: Stable Instructions: Antibiotic Form, Acute Bronchitis (ED) Additional Instructions: flu and COVID negative. Acute bronchitis can be contagious because it is usually caused by infection with a virus or bacteria. It is usually for a few days but you can be contagious for up to one week. Avoid crowds until you do not have a fever and symptoms are improved Take medication as directed over the counter Cough syrup may cause drowsiness; avoid driving or take it at night time. Tylenol 1000mg every 8 hours as needed for pain Symptomatic treatment includes: rest, fluids, and increase humidity of the air at home. Follow up with your primary care provider as needed in 1 week Go to the ER for worsening symptoms or concerns Patient Language: Arabic Prescriptions: New prednisone 50 mg tablet 50 mg PO DAILY Qty: 5 0RF doxycycline hyclate 100 mg tablet 100 mg PO BID 7 Days Qty: 14 0RF No Action atorvastatin 40 mg tablet 40 mg PO DAILY cilostazol 100 mg tablet 100 mg PO BID clopidogrel 75 mg tablet 75 mg PO DAILY gabapentin 300 mg capsule 300 mg PO TID furosemide 20 mg tablet 20 mg PO DAILY losartan 100 mg tablet 100 mg PO DAILY aspirin 81 mg Capsule 81 mg PO DAILY albuterol sulfate [Ventolin HFA] 90 mcg/actuation HFA aerosol inhaler 2 puff inhalation QID PRN (Reason: shortness of breath or wheezing) Qty: 8.5 0RF prednisone 20 mg tablet 40 mg PO DAILY 5 Days Qty: 10 0RF cilostazol 50 mg tablet Follow-up/Referrals: Harms,Alvaro Hi M.D. [Primary Care Provider] - Time of Disposition: 09:41
[2024-09-25 09:07] LABS: EDCOVIDSCREEN Negative (Negative); EDINFLUASCREEN Negative (Negative); EDINFLUBSCREEN Negative (Negative)
== END 2024-09-25 09:52 | disposition home or self-care (01) ==
PROVIDERS: Emergency Provider Nurse Practitioner Family; PCP Family Medicine
DX: J40 Bronchitis, not specified as acute or chronic (principal); Z20.822 Contact with and (suspected) exposure to COVID-19; Z87.891 Personal history of nicotine dependence; M17.12 Unilateral primary osteoarthritis, left knee
CPT/HCPCS: 71046; 87426; 87804; 99213; G0463